=== PATIENT | female | born 2000 | race Caucasian/White ===

== ENCOUNTER 2022-01-20 10:44 | Day surgery (SDC) | payer BC ==
[2022-01-18 11:30] VITALS: BMI 26.2
[~2022-01-20 10:44] MED LIST: ACETAMINOPHEN TAB 500 MG TAB PO PRN; DEXAMETHASONE SOD PHOSPHATE 4 MG/ML 1 ML VIAL IV ONE; HEPARIN SODIUM,PORCINE/PF 5,000 UNIT/0.5 ML SYRINGE SQ PRN; HYDROmorphone 0.5 MG/0.5 ML SYRINGE IVP PRN; LACTATED RINGERS 1,000 ML IV SCH; ONDANSETRON 4 MG/2 ML VIAL IVP ONE
[2022-01-20] MEDS ORDERED: LIDOCAINE 1% (10MG/ML) FOR IV START INTRADERMA ONE (11:41)
[2022-01-20] MEDS ORDERED: SCOPOLAMINE 1 MG/72 HR PATCH TRANSDERM ONE (11:52)
--- NOTE | 2022-01-20 12:00 | P.GSHP ---
History of Present Illness H&P Date: 01/20/22 Chief Complaint: Right upper quadrant pain This a 21-year-old female who presents today for laparoscopic cholecystectomy. Patient's complaints of right upper quadrant pain. Her recent HIDA scan shows biliary dysfunction. Past Medical History Past Medical History: GERD/Reflux Additional Past Medical History / Comment(s): constipation, History of Any Multi-Drug Resistant Organisms: None Reported Additional Past Surgical History / Comment(s): wisdom teeth. EGD Past Anesthesia/Blood Transfusion Reactions: No Reported Reaction, Motion Sickness Past Psychological History: No Psychological Hx Reported Smoking Status: Never smoker Past Alcohol Use History: Occasional Past Drug Use History: None Reported - Past Family History Mother Family Medical History: Cancer Additional Family Medical History / Comment(s): breast cancer Medications and Allergies Home Medications Medication Instructions Recorded Confirmed Type norgestimate-ethinyl estradioL 1 tab PO AC-LUNCH 12/15/21 01/20/22 History [Sprintec 28 Day Tablet] Allergies Allergy/AdvReac Type Severity Reaction Status Date / Time No Known Allergies Allergy Verified 01/20/22 11:19 Surgical - Exam Vital Signs Temp Pulse Resp BP Pulse Ox 98.3 F 83 18 118/70 100 01/20/22 11:18 01/20/22 11:18 01/20/22 11:18 01/20/22 11:18 01/20/22 11:18 - General well developed, well nourished, no distress - Eyes PERRL - ENT normal pinna - Neck no masses - Respiratory normal expansion - Cardiovascular Rhythm: regular - Abdomen Abdomen: soft, non tender Assessment and Plan Assessment: Chronically status Biliary dysfunction We'll perform laparoscopic cholecystectomy
[2022-01-20] MEDS ORDERED: MIDAZOLAM 2 MG/2 ML VIAL ONE (12:33)
[2022-01-20] MEDS ORDERED: NEOSTIGMINE 1 MG/ML 10 ML VIAL ONE (12:33)
[2022-01-20] MEDS ORDERED: ROCURONIUM 10 MG/ML (5 ML VIAL) IV ONE (12:33)
[2022-01-20] MEDS ORDERED: LIDOCAINE 2% INJ 20 MG/ML (2 ML VIAL) ONE (12:33)
[2022-01-20] MEDS ORDERED: SUCCINYLCHOLINE CHLORIDE 200 MG/10 ML VIAL IV ONE (12:33)
[2022-01-20] MEDS ORDERED: PROPOFOL 10 MG/ML 20 ML VIAL IV ONE (12:33)
[2022-01-20] MEDS ORDERED: KETOROLAC 15 MG/ML 1 ML VIAL ONE (12:33)
[2022-01-20] MEDS ORDERED: fentaNYL (PF) 50 MCG/ML 2 ML AMP ONE (12:33)
[2022-01-20] MEDS ORDERED: GLYCOPYRROLATE 0.2 MG/ML 2 ML VIAL ONE (12:33)
[2022-01-20] MEDS ORDERED: BUPIVACAIN-EPI 0.25%-1:200,000 30 ML VIAL SQ ONE (13:03)
--- NOTE | 2022-01-20 13:18 | P.OP ---
Date of Procedure: 01/20/22 Preoperative Diagnosis: Chronic cholecystitis Postoperative Diagnosis: Chronic cholecystitis Procedure(s) Performed: Laparoscopic cholecystectomy Anesthesia: KRYSTAL Surgeon: Marvin De La Rosa Estimated Blood Loss (ml): 5 Pathology: other (Gallbladder) Condition: stable Disposition: PACU Description of Procedure: The patient was placed on the operating table. The patient received a general endotracheal tube anesthesia. The patients abdomen was prepped and draped in the usual sterile fashion. Through an infraumbilical stab incision, the fascia of the anterior abdominal wall was grasped with a pair of Kochers and then the Veress needle was placed in the peritoneal cavity. Position of the Veress needle was confirmed with positive drop test. The abdomen was then insufflated. After adequate insufflation, the 10 mm trocar was placed in the peritoneal cavity. Following this the laparoscope was placed in the peritoneal cavity. The patient was placed in the head-up, right side up position and then a 5 mm trocar was placed in the right lateral and right subcostal position under direct visualization. A 8 mm trocar was placed in the epigastric position. The gallbladder was grasped in the fundus and infundibulum. Traction on the gallbladder was placed in the lateral and the cephalad positions. The triangle of Calot was visualized.. The cystic duct was bluntly dissected until the union of the cystic duct and common bile duct was seen. A critical view of safety was achieved. The cystic duct was then divided and sealed with the Harmonic scissors. A PDS Endoloop was then placed throughout the cystic duct stump. The cystic artery divided and sealed with the Harmonic scissors. The gallbladder was then removed from the liver bed using Harmonic scissors. The gallbladder was then extracted through the epigastric port site. Operative field was checked for any bleeding spots and Harmonic scissors was used to coagulate the liver bed. The abdomen was irrigated. The trocars were removed. The skin was closed using interrupted 3-0 Vicryl suture. Dermabond dressing were applied. The patient tolerated the procedure well.
[2022-01-20 13:24] VITALS: RESP 16; TEMP 97.7
[2022-01-20] MEDS ORDERED: ONDANSETRON 4 MG/2 ML VIAL ONE (14:34)
[2022-01-20] MEDS ORDERED: ONDANSETRON 4 MG/2 ML VIAL IVP ONE (14:36)
[2022-01-20] MEDS ORDERED: LACTATED RINGERS 1,000 ML IV ONE (14:45)
[2022-01-20 15:04] VITALS: BP 108/64; PULSE 89
== END 2022-01-20 15:32 | disposition home or self-care (01) ==
LOC: OR 10:44
PROVIDERS: ATTEND Surgery
DX: K80.10 Calculus of gallbladder with chronic cholecystitis without obstruction (principal); K21.9 Gastro-esophageal reflux disease without esophagitis; K59.00 Constipation, unspecified; F10.99 Alcohol use, unspecified with unspecified alcohol-induced disorder; Z80.3 Family history of malignant neoplasm of breast; T75.3XXD Motion sickness, subsequent encounter; Z79.899 Other long term (current) drug therapy
CPT/HCPCS: 47562; 81025; 88304; J2250; J0330; J1100; J2710; J0690; J2405; J3010; J1885; J2704; J1644; J2001

== ENCOUNTER → 2023-03-22 | Outpatient (CLI) | payer BC ==
--- NOTE | 2023-03-22 19:48 | US ---
EXAMINATION TYPE: US thyroid st tissue head/neck DATE OF EXAM: 03/22/2023 COMPARISON: NONE CLINICAL INDICATION: Female, 22 years old with history of R59.0 LOCALIZED ENLARGED LYMPH NODES; Lump left neck TECHNIQUE: Grayscale imaging of the left neck. FINDINGS: Hypoechoic lesion measuring 1.2 x 0.8 this is located in the area of palpable abnormality. This findi ng likely represents a lymph node. No suspicious masses or organizing fluid collections. IMPRESSION: Suspected left neck nonenlarged lymph node.
== END | disposition home or self-care (01) ==
LOC: RADUSWWP 16:24
PROVIDERS: ATTEND Otolaryngology
DX: R59.0 Localized enlarged lymph nodes (principal)
CPT/HCPCS: 76536

== ENCOUNTER 2023-04-08 08:56 | Day surgery (SDC) | payer BC ==
[2023-04-08 09:47] VITALS: TEMP 97.9
[2023-04-08 10:36] VITALS: BP 117/70; PULSE 75; RESP 16
--- NOTE | 2023-04-08 10:59 | US ---
ULTRASOUND GUIDED CORE BIOPSY LEFT NECK LYMPH NODE: CLINICAL HISTORY: Left neck lymph node FINDINGS: The procedure was explained to the patient. The risks, complications, benefits and alternatives were discussed and any questions were answered. Informed consent was obtained. Patient was placed supin e on the ultrasound table and prepped and draped in the usual sterile fashion. Utilizing a 18 gauge needle, two passes were made into the left neck lymph node. Patient was stable throughout the procedure. Pathology is pending. All elements of maximal barrier technique were utilized. IMPRESSION: 1. Successful ultrasound guided biopsy left neck lymph node.
== END 2023-04-08 10:15 | disposition home or self-care (01) ==
LOC: RADPROMAIN 08:56
PROVIDERS: ATTEND Otolaryngology
DX: R22.1 Localized swelling, mass and lump, neck (principal)
CPT/HCPCS: 20206; 38505; 76942; 88305

== ENCOUNTER 2023-09-08 06:39 | Day surgery (SDC) | payer BC ==
[2023-09-02 16:09] VITALS: BMI 27.8
[~2023-09-08 06:39] MED LIST changes: -ACETAMINOPHEN TAB 500 MG TAB PO PRN; -DEXAMETHASONE SOD PHOSPHATE 4 MG/ML 1 ML VIAL IV ONE; -HEPARIN SODIUM,PORCINE/PF 5,000 UNIT/0.5 ML SYRINGE SQ PRN; -HYDROmorphone 0.5 MG/0.5 ML SYRINGE IVP PRN; -ONDANSETRON 4 MG/2 ML VIAL IVP ONE
[2023-09-08] MEDS: LACTATED RINGERS 1,000 ML IV ONE (07:28)
[2023-09-08 07:30] VITALS: TEMP 97.9
[2023-09-08] MEDS ORDERED: PROPOFOL 10 MG/ML 20 ML VIAL IV ONE (07:30)
--- NOTE | 2023-09-08 07:40 | P.GSHP ---
History of Present Illness H&P Date: 09/08/23 Chief Complaint: constipation this is a 23-year-old female who's had issues with constipation. Patient presents today for colonoscopy. Past Medical History Past Medical History: GERD/Reflux Additional Past Medical History / Comment(s): constipation, egd, yeast infections History of Any Multi-Drug Resistant Organisms: None Reported Past Surgical History: Cholecystectomy Additional Past Surgical History / Comment(s): wisdom teeth. EGD Past Anesthesia/Blood Transfusion Reactions: No Reported Reaction, Motion Sickness Additional Past Anesthesia/Blood Transfusion Reaction / Comment(s): no blood transfusion Smoking Status: Never smoker - Past Family History Mother Family Medical History: Cancer Additional Family Medical History / Comment(s): breast cancer Medications and Allergies Home Medications Medication Instructions Recorded Confirmed Type norgestimate-ethinyl estradioL 1 tab PO AC-LUNCH 12/15/21 09/08/23 History [Sprintec 28 Day Tablet] Loratadine [Claritin] 10 mg PO DAILY 04/01/23 09/08/23 History Allergies Allergy/AdvReac Type Severity Reaction Status Date / Time Yeast Allergy Unknown Verified 09/08/23 07:12 Surgical - Exam Vital Signs Temp Pulse Resp BP Pulse Ox 97.9 F 85 18 120/68 100 09/08/23 07:17 09/08/23 07:17 09/08/23 07:17 09/08/23 07:17 09/08/23 07:17 - General well developed, well nourished, no distress - Eyes PERRL - ENT normal pinna, normal nares - Neck no masses - Respiratory normal expansion - Cardiovascular Rhythm: regular - Abdomen Abdomen: soft, non tender Assessment and Plan Assessment: constipation. We'll perform colonoscopy.
--- NOTE | 2023-09-08 07:58 | P.OP ---
Date of Procedure: 09/08/23 Preoperative Diagnosis: constipation Postoperative Diagnosis: normal colonoscopy Procedure(s) Performed: colonoscopy Anesthesia: MAC Surgeon: Marvin De La Rosa Pathology: none sent Condition: stable Disposition: PACU Description of Procedure: the patient's placed on the endoscopy table in the lateral position. He received IV sedation. Digital rectal exam was performed which revealed no abnormalities. The flexible colonoscope was then placed patient anus and passed throughout the entire colon. The ileocecal valve was visualized. The cecum, ascending and transverse colon appeared normal. The descending and sigmoid colon appeared normal. Scope withdrawn for patient.
[2023-09-08 08:19] VITALS: BP 100/63; PULSE 75; RESP 16
== END 2023-09-08 08:36 | disposition home or self-care (01) ==
LOC: ORWHC2ENDO 06:39
PROVIDERS: ATTEND Surgery
DX: K59.00 Constipation, unspecified (principal); K21.9 Gastro-esophageal reflux disease without esophagitis; Z90.49 Acquired absence of other specified parts of digestive tract; Z98.890 Other specified postprocedural states; Z80.3 Family history of malignant neoplasm of breast; Z79.899 Other long term (current) drug therapy; Z91.018 Allergy to other foods
CPT/HCPCS: 81025; 45378; J2704

== ENCOUNTER 2023-12-15 08:40 | Day surgery (SDC) | payer BC ==
[2023-12-15] MEDS ORDERED: LACTATED RINGERS 1,000 ML BAG ONE (09:20)
[2023-12-15] MEDS ORDERED: PROPOFOL 10 MG/ML 20 ML VIAL IV ONE ×2 (09:59)
[2023-12-15] MEDS ORDERED: LIDOCAINE 1% INJ 10MG/ML (20 ML MDV) ONE (09:59)
--- NOTE | 2023-12-23 15:54 | OP ---
OPERATIVE REPORT DATE OF SERVICE : 12/15/2023 PROCEDURE: Esophagogastroduodenoscopy. PREOPERATIVE DIAGNOSIS: Gastroesophageal reflux disease. POSTOPERATIVE DIAGNOSES: 1. Mild antral gastritis. 2. Mild esophagitis. 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 ANESTHESIA: MAC. DESCRIPTION OF PROCEDURE: The patient was placed on the endoscopy table in the lateral position. She received IV sedation. The gastroscope was placed in the oropharynx, passed into the esophagus and into the stomach. The scope was placed through the pylorus. The first and second portion of the duodenum appeared normal. The scope was then brought back to the antrum. This was mildly inflamed. A biopsy was performed. The scope was then retroflexed and the remainder of the stomach appeared normal. The GE junction was at 40 cm. There was no significant hiatal hernia. The distal esophagus was minimally inflamed. A biopsy was performed. The proximal esophagus appeared normal. The scope was withdrawn from the patient. There were minimal endoscopic findings. The patient was scheduled for a HIDA scan to evaluate for biliary dysfunction. She will follow up in the office in 2 weeks. MMODL / IJN: [id number] /
== END 2023-12-15 10:45 ==
LOC: ORWHC2ENDO 08:40
PROVIDERS: ATTEND Surgery
DX: K29.50 Unspecified chronic gastritis without bleeding (principal); K21.00 Gastro-esophageal reflux disease with esophagitis, without bleeding; Z79.899 Other long term (current) drug therapy
CPT/HCPCS: 43239; 81025; 88305